=== PATIENT | female | born 1990 | race Caucasian/White ===

== ENCOUNTER 2018-11-30 05:25 | Day surgery (SDC) | payer OTHER ==
[~2018-11-30] VITALS: Ht 167.6 cm; Wt 81.6 kg
--- NOTE | ~2018-11-30 | O ---
[facility] [place] [address] OPERATIVE REPORT Name: MANUEL STEWART Room #: 150-1 [facility] M.R.#: [id number] Admission: 11/30/18 ������������������ Attend Phys: Lyle Saleem Discharge: ������������������ Date of : 89 Report #: [id number] THIS REPORT FOR: //name// CC: [facility] physician/PCP Lyle Silveira DATE OF SERVICE: 11/30/2018 PREOPERATIVE DIAGNOSIS: Right knee anterior cruciate ligament tear. POSTOPERATIVE DIAGNOSIS: Right knee anterior cruciate ligament tear. PROCEDURE PERFORMED: Right knee arthroscopy, anterior cruciate ligament reconstruction with hamstring autograft. SURGEON: Lyle Silveira MD [employer] OPERATOR: Taylor Smith PA-C. ANESTHESIA: General with preoperative femoral nerve block. FLUIDS: Please see anesthesia records. ESTIMATED BLOOD LOSS: Less than 5 mL. DESCRIPTION OF PROCEDURE: After proper identification of the patient and operative site in preoperative holding area, the operative site was signed by myself. Prophylactic antibiotics given. The patient elected to receive a block after reviewing the risks, benefits, alternatives and potential complications with anesthesia. After a satisfactory block, the patient was brought back to the operative suite after induction of satisfactory general anesthesia per LMA. Right knee was examined, 2+ Juancarlos and pivot shift were noted. Range of motion was full and symmetric compared to the opposite side. Tourniquet was applied to the upper thigh. Limb was placed in an arthroscopic leg ding that accommodated hyperflexion. Limb was sterilely prepped and draped in usual manner, elevated and exsanguinated with an Esmarch and tourniquet was inflated to 300 mmHg. Please see anesthesia records for total time. A superior medial portal was created for inflow purposes. Joint was inflated by gravity inflow with normal saline. An anterolateral and then an anteromedial portal were created using a spinal needle for localization. Examination of the suprapatellar pouch, medial and lateral gutters revealed minimal effusion. Patellofemoral articulation was normal in its appearance. Medial and lateral compartments demonstrated intact meniscus. They were stable to probing. No chondral abnormalities were noted. Torn anterior cruciate ligament was appreciated. There was unstable probing. PCL was intact. At this point, attention was divided to harvesting the graft. An incision overlying the pes [address] [address] OPERATIVE REPORT Name: MANUEL STEWART Room #: 150-1 [facility] MReynaldo.#: [id number] Admission: 11/30/18 ������������������ Attend Phys: Lyle Saleem Discharge: ������������������ Date of : 89 Report #: [id number] tendons was planned. Skin was incised sharply. Full thickness skin flaps were developed. The sartorial fascia was identified, elevated in an L-shaped manner and the gracilis and semitendinosis tendons were carefully dissected free bluntly, harvested with a closed loop blunt tendon stripper and prepared on the back table where any excess soft tissue and muscle were carefully removed. Whipstitch was placed on the other end, placed on the Graftmaster and the graft measured approximately 8 mm on the tibial side and 7.5 mm on the femoral side. At this point, the remaining ACL was debrided. Footprints were left on the femur and tibia for aid in reconstruction purposes. Guidepin was inserted into the ACL footprint on the tibia. This was reamed to 8 mm to accommodate the graft. Rasp and motorized shaver used to contour the edges and remove any excess soft tissue. Very minimal notchplasty was performed. Approximately 2 mm of bone was resected here. With the knee in a hyperflexed position, the 5 mm anteromedial portal guide was utilized. A 35 mm total tunnel depth was noted with a 20 mm socket for the graft. This was reamed with a 7.5 mm low profile reamer. Excess bone debris was carefully removed and #5 passing suture was passed. The knee was thoroughly irrigated with normal saline and the ACL TightRope was assembled and the quadrupled hamstring graft was placed over this. Graft was pulled into position under direct visualization. The TightRope device was watched to go past the far cortex, toggled. It was stable to tension and the graft was pulled into position. The knee was placed throughout a full range of motion. The graft appeared to be isometrically placed with no evidence of impingement along the lateral wall or in full extension. The Bio-Intrafix tensioning device was then used to cycle the knee for several minutes with the knee in full extension. The tunnel was dilated. The small sheath was inserted and a 6.7 screw had excellent purchase. Knee was stable to Juancarlos's, stable to probing. Arthroscope was reintroduced to the knee and the ACL was stable to probing with no evidence of impingement. The knee was thoroughly irrigated with normal saline as well as the tibial incision. Free ends of the graft were trimmed. Sartorial fascia was repaired with 0 Vicryl, 2-0 Vicryl for the subcutaneous tissues, final running subcuticular Monocryl was utilized as well as Dermabond. Simple nylon stitches were placed in the portals. Sterile compressive dressing, Bar bandage from the toes to the groin and a hinged knee brace locked in full extension. The patient was awakened and transferred to the recovery room in stable condition. ��������������������������������������������� ���������������������������������������� By: ��������������������������������������������� [id number] Lyle Silveira MD /jono
[2018-11-30 07:32] VITALS: BP 118/77
[2018-11-30 10:18] VITALS: BP 118/77
== END 2018-11-30 11:00 | disposition home or self-care (01) ==
LOC: TBA 05:25 → OR 05:25
DX: S83.511A Sprain of anterior cruciate ligament of right knee, initial encounter (principal); Z98.890 Other specified postprocedural states; X58.XXXA Exposure to other specified factors, initial encounter; Y93.89 Activity, other specified; Y92.89 Other specified places as the place of occurrence of the external cause; Y99.8 Other external cause status
CPT/HCPCS: 50010; 50101; 50176; 50386; 50405; 51038; 51320; 51445; 52001; 52138; 52282; 52313; 53337; 54170; 55430; 56525; 56526; 56530; 56531; 57103; 57180; 62110; 62900; 70005